=== PATIENT | female | born 1965 | race Caucasian/White ===

== ENCOUNTER 2016-10-12 09:57 | Inpatient (IN) | payer BC ==
[~2016-10-12] VITALS: Ht 162.6 cm; Wt 78.9 kg
[~2016-10-12 09:57] MED LIST: ACET500T76 PO; ACYC-114 PO; ASPI-496 PO; BACITRACIN 50,000 UNIT ONE; BACITRACIN OINT 500U/GM, 15 GM ONE; BIOT5TAB PO; BUPIVACAINE/PF-EPI 0.5% 1:200K ONE; CHOL500015 PO; DIPH25TA55 PO; GABA300C10 PO; GUAI1TAB PO; IBUP800T PO; INSU100C5 SQ-INSULIN; INSU100V8 SQ; LISI5TAB7 PO; METHOCARBAMOL 750 MG in DEXTROSE 5% 100 ML IV SCH; NAPR220C2 PO; ORLI60CA2 PO; POTA99TA3 PO; RANI300C PO; SIMV40TA3 PO; THROMBIN 20,000 UNIT VIAL TP ONE
[2016-10-12 10:26] VITALS: BP 122/78
[2016-10-12] MEDS ORDERED: INSU100I34 SQ (10:33)
[2016-10-12] MEDS ORDERED: INSU100C SQ-INSULIN (10:33)
[2016-10-12] MEDS ORDERED: LACTATED RINGERS 1,000 ML IV SCH (10:58)
[2016-10-12] MEDS ORDERED: BUPIVACAINE/PF-EPI 0.5% 1:200K ONE (13:18)
[2016-10-12] MEDS ORDERED: FENTANYL PF 250 MCG/5ML ONE (14:37)
[2016-10-12] MEDS ORDERED: KETAMINE 10 MG/ML, 20ML ONE (14:37)
[2016-10-12] MEDS ORDERED: SUCCINYLCHOLINE 20 MG/ML, 10ML ONE (14:43)
[2016-10-12] MEDS ORDERED: CEFAZOLIN 1,000 MG ONE (14:43)
[2016-10-12] MEDS ORDERED: METOCLOPRAMIDE 5 MG/ML, 2ML ONE (14:43)
[2016-10-12] MEDS ORDERED: PROPOFOL 10 MG/ML, 50ML ONE (14:43)
[2016-10-12] MEDS ORDERED: ONDANSETRON 2MG/ML, 2ML ONE (14:43)
[2016-10-12] MEDS ORDERED: PROPOFOL 10 MG/ML, 20ML ONE (14:43)
[2016-10-12] MEDS ORDERED: DEXTROSE 50%, 50ML SYRINGE ONE (15:40)
[2016-10-12] MEDS: INSULIN REGULAR 100 UNITS/ML, 3ML VIAL SQ-INSULIN SCH ×2 (16:00→21:54)
[2016-10-12] MEDS ORDERED: OXYcodone 5 MG/5 ML ORAL.SOL UDC ONE (17:15)
[2016-10-12] MEDS ORDERED: ACETAMINOPHEN 325 MG TABLET ONE (17:15)
[2016-10-12] MEDS ORDERED: ACETAMINOPHEN 650 MG/20.3 ML UDC ONE (17:15)
[2016-10-12] MEDS ORDERED: INSULIN SINGLE DOSE, ER SQ-INSULIN ONE ×2 (17:15→17:17)
[2016-10-12] MEDS ORDERED: FENTANYL PF 100 MCG/2ML ONE (17:15)
[2016-10-12] MEDS ORDERED: MIDAZOLAM 1 MG/ML, 2ML IV PRN (17:30)
[2016-10-12] MEDS ORDERED: hydrALAzine 20 MG/ML, 1ML IV PRN (17:30)
[2016-10-12] MEDS ORDERED: MEPERIDINE/PF 25MG/0.5ML IVPush PRN (17:30)
[2016-10-12] MEDS ORDERED: ONDANSETRON 2MG/ML, 2ML IVPush PRN (17:30)
[2016-10-12] MEDS ORDERED: PROMETHAZINE 25 MG/ML, 1ML IV PRN (17:30)
[2016-10-12] MEDS ORDERED: LABETALOL 5MG/ML, 20ML IV PRN (17:30)
[2016-10-12] MEDS ORDERED: OXYcodone 5 MG/5 ML ORAL.SOL UDC PO PRN (17:30)
[2016-10-12] MEDS ORDERED: MIDAZOLAM 1 MG/ML, 2ML ONE (17:34)
[2016-10-12] MEDS: FENTANYL PF 100 MCG/2ML IV PRN ×2 (17:35→17:50)
[2016-10-12] MEDS ORDERED: HYDROmorphone 2 MG/ML, 1ML ONE (17:58)
[2016-10-12] MEDS: HYDROmorphone 1 MG/ML, 1ML IV PRN ×2 (18:01→18:13)
[2016-10-12] MEDS ORDERED: METHOCARBAMOL 1,000 MG in DEXTROSE 5% 100 ML IV ONE (19:30)
[2016-10-12] MEDS ORDERED: MAGNESIUM HYDROXIDE 8%, 30ML UDC PO PRN (19:30)
[2016-10-12] MEDS ORDERED: DIPHENHYDRAMINE 25 MG CAPSULE PO PRN (19:30)
[2016-10-12] MEDS ORDERED: HYDROcodone/APAP 5/325 TABLET PO PRN (19:30)
[2016-10-12] MEDS ORDERED: BISACODYL 10 MG SUPP PR PRN (19:30)
[2016-10-12] MEDS: NS + 20MEQ KCL 1,000 ML IV SCH (19:30)
[2016-10-12] MEDS ORDERED: FAMOTIDINE 40 MG TABLET PO PRN (20:30)
[2016-10-12] MEDS ORDERED: GABAPENTIN MC SCH (20:30)
[2016-10-12] MEDS: morphine SULFATE 10 MG/ML, 1ML IV PRN (20:54)
[2016-10-12] MEDS ORDERED: ZOLPIDEM 5MG TABLET PO PRN (21:00)
[2016-10-12] MEDS ORDERED: INSULIN DETEMIR 100 UNITS/ML, PEN SQ-INSULIN SCH (21:00)
[2016-10-12] MEDS: SIMVASTATIN 20 MG TABLET PO SCH (21:09)
[2016-10-12] MEDS: ONDANSETRON 2MG/ML, 2ML IV PRN (22:12)
[2016-10-12] MEDS: OXYcodone/APAP 5/325MG TABLET PO PRN (22:46)
[2016-10-12] MEDS: CEFAZOLIN PMX 1GM/50ML 50 ML IVPB SCH (22:46)
[2016-10-13 00:29] VITALS: BP 133/64
[2016-10-13] MEDS: morphine SULFATE 10 MG/ML, 1ML IV PRN ×3 (02:26→16:35)
[2016-10-13 03:41] VITALS: BP 132/62
[2016-10-13] MEDS: METHOCARBAMOL 750 MG in DEXTROSE 5% 100 ML IV SCH ×3 (04:39→20:20)
[2016-10-13] MEDS: OXYcodone/APAP 5/325MG TABLET PO PRN ×5 (04:45→22:52)
[2016-10-13] MEDS: ONDANSETRON 2MG/ML, 2ML IV PRN ×2 (04:45→13:19)
[2016-10-13] MEDS: NS + 20MEQ KCL 1,000 ML IV SCH ×2 (05:46→20:21)
[2016-10-13] MEDS: CEFAZOLIN PMX 1GM/50ML 50 ML IVPB SCH (06:40)
[2016-10-13 07:40] VITALS: BP 132/62
[2016-10-13] MEDS ORDERED: DEXAMETHASONE 4 MG/ML, 1ML IV ONE (08:00)
[2016-10-13] MEDS: INSULIN REGULAR 100 UNITS/ML, 3ML VIAL SQ-INSULIN SCH ×4 (08:15→21:27)
[2016-10-13] MEDS: GABAPENTIN 300 MG CAPSULE PO SCH (08:16)
[2016-10-13] MEDS: OxyconTIN ER 10 MG TAB.ER PO SCH ×2 (08:16→21:22)
[2016-10-13] MEDS: CHOLECALCIFEROL 1,000 UNIT TABLET PO SCH (08:17)
[2016-10-13] MEDS: SENNA/DOCUSATE TABLET PO SCH (08:17)
[2016-10-13] MEDS: LISINOPRIL 5 MG TABLET PO SCH (08:17)
[2016-10-13] MEDS ORDERED: INSULIN GLARGINE 36 UNIT SQ SCH (11:30)
[2016-10-13] MEDS: INSULIN DETEMIR 100 UNITS/ML, PEN SQ-INSULIN SCH (12:10)
[2016-10-13 15:22] VITALS: BP 134/54
[2016-10-13 19:10] VITALS: BP 143/66
[2016-10-13] MEDS: SIMVASTATIN 20 MG TABLET PO SCH (21:22)
[2016-10-14 01:40] VITALS: BP 138/65
[2016-10-14] MEDS: METHOCARBAMOL 750 MG in DEXTROSE 5% 100 ML IV SCH ×3 (03:20→20:00)
[2016-10-14] MEDS: OXYcodone/APAP 5/325MG TABLET PO PRN ×4 (03:20→21:33)
[2016-10-14] MEDS: morphine SULFATE 10 MG/ML, 1ML IV PRN (04:41)
[2016-10-14] MEDS: INSULIN REGULAR 100 UNITS/ML, 3ML VIAL SQ-INSULIN SCH ×4 (07:00→20:13)
[2016-10-14 07:40] VITALS: BP 145/77
[2016-10-14] MEDS: SENNA/DOCUSATE TABLET PO SCH (09:26)
[2016-10-14] MEDS: CHOLECALCIFEROL 1,000 UNIT TABLET PO SCH (09:26)
[2016-10-14] MEDS: OxyconTIN ER 10 MG TAB.ER PO SCH ×2 (09:26→20:00)
[2016-10-14] MEDS: GABAPENTIN 300 MG CAPSULE PO SCH (09:26)
[2016-10-14] MEDS: INSULIN DETEMIR 100 UNITS/ML, PEN SQ-INSULIN SCH (09:26)
[2016-10-14] MEDS: LISINOPRIL 5 MG TABLET PO SCH (09:27)
[2016-10-14 15:11] VITALS: BP 122/63
[2016-10-14 19:40] VITALS: BP 129/72
[2016-10-14] MEDS: SIMVASTATIN 20 MG TABLET PO SCH (20:01)
[2016-10-15] MEDS: OXYcodone/APAP 5/325MG TABLET PO PRN ×3 (01:42→11:31)
[2016-10-15 03:00] VITALS: BP 135/76
[2016-10-15] MEDS ORDERED: OXYC10TA32 PO (03:10)
[2016-10-15] MEDS ORDERED: HYDR-3144 PO (03:21)
[2016-10-15] MEDS ORDERED: SENN1TAB7 PO (03:39)
[2016-10-15] MEDS ORDERED: CALC300T5 PO (03:40)
[2016-10-15] MEDS ORDERED: CHOL-29 PO (03:43)
[2016-10-15] MEDS ORDERED: METH750T87 PO (03:44)
[2016-10-15] MEDS ORDERED: METHOCARBAMOL 750 MG TABLET PO SCH (06:00)
[2016-10-15] MEDS: INSULIN REGULAR 100 UNITS/ML, 3ML VIAL SQ-INSULIN SCH ×2 (07:34→11:00)
[2016-10-15 08:20] VITALS: BP 130/76
[2016-10-15] MEDS: SENNA/DOCUSATE TABLET PO SCH (09:12)
[2016-10-15] MEDS: OxyconTIN ER 10 MG TAB.ER PO SCH (09:12)
[2016-10-15] MEDS: GABAPENTIN 300 MG CAPSULE PO SCH (09:12)
[2016-10-15] MEDS: CHOLECALCIFEROL 1,000 UNIT TABLET PO SCH (09:13)
[2016-10-15] MEDS: LISINOPRIL 5 MG TABLET PO SCH (09:13)
[2016-10-15] MEDS: INSULIN DETEMIR 100 UNITS/ML, PEN SQ-INSULIN SCH (09:16)
[2016-10-15] MEDS ORDERED: OXYC1TAB9 PO (11:17)
[2016-10-15 12:15] VITALS: BP 130/77
== END 2016-10-15 12:21 | disposition home or self-care (01) | DRG 473 ==
LOC: ORIP 09:57 → 4NOR 18:56
PROVIDERS: ADMIT Neurological Surgery; ATTEND Neurological Surgery
PROC: 0RG2071 Fusion of 2 or more Cervical Vertebral Joints with Autologous Tissue Substitute, Posterior Approach, Posterior Column, Open Approach (ICD-10-PCS; 2016-10-12)
PROC: 0RB50ZZ Excision of Cervicothoracic Vertebral Disc, Open Approach (ICD-10-PCS; 2016-10-12)
PROC: 0RB30ZZ Excision of Cervical Vertebral Disc, Open Approach (ICD-10-PCS; 2016-10-12)
PROC: 01N10ZZ Release Cervical Nerve, Open Approach (ICD-10-PCS; 2016-10-12)
PROC: 4A11X4G Monitoring of Peripheral Nervous Electrical Activity, Intraoperative, External Approach (ICD-10-PCS; 2016-10-12)
PROC: 0RG4071 Fusion of Cervicothoracic Vertebral Joint with Autologous Tissue Substitute, Posterior Approach, Posterior Column, Open Approach (ICD-10-PCS; principal; 2016-10-12 14:30)
DX: M50.03 Cervical disc disorder with myelopathy, cervicothoracic region (principal); M50.023 Cervical disc disorder at C6-C7 level with myelopathy; M50.223 Other cervical disc displacement at C6-C7 level; E11.9 Type 2 diabetes mellitus without complications; R13.10 Dysphagia, unspecified; Z90.49 Acquired absence of other specified parts of digestive tract
CPT/HCPCS: 36415; 72040; 82962; 86850; 86900; C1713; J0690; J1100; J1170; J1815; J2250; J2405; J2704; J3010; J3480; C1762; J0330; J2270; J2765; J2800; J7120

== ENCOUNTER 2016-10-20 15:48 | Emergency (ER) | payer BC ==
[~2016-10-20] VITALS: Ht 162.6 cm; Wt 77.6 kg
[~2016-10-20 15:48] MED LIST changes: -BACITRACIN 50,000 UNIT ONE; -BACITRACIN OINT 500U/GM, 15 GM ONE; -BUPIVACAINE/PF-EPI 0.5% 1:200K ONE; +CALC300T5 PO; +CHOL-29 PO; +HYDR-3144 PO; +INSU100C SQ-INSULIN; +INSU100I34 SQ; +METH750T87 PO; -METHOCARBAMOL 750 MG in DEXTROSE 5% 100 ML IV SCH; +OXYC10TA32 PO; +OXYC1TAB9 PO; +SENN1TAB7 PO; -THROMBIN 20,000 UNIT VIAL TP ONE
[2016-10-20 16:03] VITALS: BP 145/71
[2016-10-20] MEDS ORDERED: SODIUM CHLORIDE FLUSH 10ML SYR IVF ONE (16:30)
[2016-10-20] MEDS ORDERED: SODIUM CHLORIDE 0.9% 1,000ML IVBOLUS ONE (16:30)
[2016-10-20 17:22] LABS: ASPARTATE AMINO TRANSFERASE 10 U/L (15-37); BLOOD UREA NITROGEN 13 mg/dL (7-18)
[2016-10-20] MEDS ORDERED: PROMETHAZINE 25 MG/ML, 1ML ONE (18:19)
[2016-10-20] MEDS ORDERED: PROMETHAZINE 25 MG/ML, 1ML IM ONE (18:30)
[2016-10-20] MEDS ORDERED: METHYLNALTREXONE 12 MG/0.6 ML SQ ONE (18:30)
[2016-10-20 19:34] LABS: PATH.CAST-FLAG NOT PRESENT; SPERM-FLAG NOT PRESENT; SRC-FLAG NOT PRESENT; XTAL-FLAG NOT PRESENT; YLC-FLAG NOT PRESENT
== END 2016-10-20 20:11 | disposition home or self-care (01) ==
LOC: ED 20:00
DX: K59.00 Constipation, unspecified (principal)
CPT/HCPCS: 36415; 74020; 80053; 81001; 85025; 87086; 96372; 99285; J2550

== ENCOUNTER → 2016-11-17 | Outpatient (CLI) | payer BC | END | disposition home or self-care (01) | LOC: RAD 11:17 | PROVIDERS: ATTEND Neurological Surgery | DX: M50.022 Cervical disc disorder at C5-C6 level with myelopathy (principal); Z98.1 Arthrodesis status | CPT/HCPCS: 72050 ==

== ENCOUNTER → 2016-12-27 | Outpatient (CLI) | payer BC | END | disposition home or self-care (01) | LOC: RAD 09:34 | PROVIDERS: ATTEND Neurological Surgery | DX: M48.02 Spinal stenosis, cervical region (principal); M50.00 Cervical disc disorder with myelopathy, unspecified cervical region; G89.29 Other chronic pain | CPT/HCPCS: 72050 ==

== ENCOUNTER → 2017-03-20 | Outpatient (CLI) | payer BC ==
[~2017-03-20] MED LIST changes: +ACET500T71 PO; -ACET500T76 PO; +DIPH-540 PO; -DIPH25TA55 PO
== END | disposition home or self-care (01) ==
LOC: RAD 08:36
PROVIDERS: ATTEND Neurological Surgery
DX: M50.00 Cervical disc disorder with myelopathy, unspecified cervical region (principal); M47.892 Other spondylosis, cervical region; Z98.1 Arthrodesis status
CPT/HCPCS: 72050

== ENCOUNTER → 2017-04-21 | Outpatient (CLI) | payer BC ==
[~2017-04-21] MED LIST changes: -HYDR-3144 PO; +HYDR-3245 PO; +IBUP-1223 PO; -IBUP800T PO; -OXYC10TA32 PO; +OXYC10TA47 PO
== END | disposition home or self-care (01) ==
LOC: CFH 08:31
PROVIDERS: ATTEND Neurological Surgery
DX: M50.00 Cervical disc disorder with myelopathy, unspecified cervical region (principal)
CPT/HCPCS: 72125

== ENCOUNTER → 2017-06-08 | Outpatient (CLI) | payer BC ==
[~2017-06-08] MED LIST changes: +ACET-1600 PO; +ASPI-621 PO; +BIOT25005 PO; +DIPH25TA2 PO; +POTASSIUM GLU PO; +TIZA4TAB PO; +[UNRECOGNIZED DRUG - CODE] TP
[2017-06-08 13:26] LABS: ASPARTATE AMINO TRANSFERASE 17 U/L (15-37); BLOOD UREA NITROGEN 17 mg/dL (7-18)
== END | disposition home or self-care (01) ==
LOC: STAR 11:00
PROVIDERS: ATTEND Orthopaedic Surgery
DX: Z01.818 Encounter for other preprocedural examination (principal); R94.31 Abnormal electrocardiogram [ECG] [EKG]; M75.121 Complete rotator cuff tear or rupture of right shoulder, not specified as traumatic; M75.41 Impingement syndrome of right shoulder; M75.21 Bicipital tendinitis, right shoulder; E11.9 Type 2 diabetes mellitus without complications
CPT/HCPCS: 36415; 80053; 93005

== ENCOUNTER 2017-06-13 10:39 | Day surgery (SDC) | payer BC ==
[~2017-06-13] VITALS: Ht 162.6 cm; Wt 82.0 kg
[~2017-06-13 10:39] MED LIST changes: +EPINEPHRINE 1 MG/ML, 1ML ONE; +LIDOCAINE/PF 1%, 30ML ONE
[2017-06-13] MEDS ORDERED: LACTATED RINGERS 1,000 ML IV SCH (10:50)
[2017-06-13 11:08] VITALS: BP 153/81
[2017-06-13] MEDS ORDERED: MIDAZOLAM 1 MG/ML, 2ML ONE (11:49)
[2017-06-13] MEDS ORDERED: FENTANYL PF 100 MCG/2ML ONE (11:49)
[2017-06-13] MEDS ORDERED: BUPIVACAINE/PF 0.5% ONE ×2 (11:50→13:03)
[2017-06-13] MEDS ORDERED: TEMPLATE NON-FORMULARY MED. (Insulin Aspart** (Novolog**) 0 UNITS) SQ-INSULIN SCH (13:00)
[2017-06-13] MEDS ORDERED: IBUPROFEN 800 MG TABLET PO SCH (13:00)
[2017-06-13] MEDS ORDERED: [UNRECOGNIZED DRUG - REMARK] PO SCH (13:00)
[2017-06-13] MEDS ORDERED: MENTHOL TP SCH (13:00)
[2017-06-13] MEDS ORDERED: TEMPLATE NON-FORMULARY MED. (Ranitidine Hcl** 150 MG) PO PRN (13:00)
[2017-06-13] MEDS ORDERED: TIZANIDINE 4MG TABLET PO SCH (13:00)
[2017-06-13] MEDS ORDERED: METHYL SALICYLATE TP SCH (13:00)
[2017-06-13] MEDS ORDERED: INSULIN GLARGINE HUM REC ANLOG 36 UNIT SQ SCH (13:00)
[2017-06-13] MEDS ORDERED: SUCCINYLCHOLINE 20 MG/ML, 10ML ONE (13:02)
[2017-06-13] MEDS ORDERED: KETOROLAC 30 MG/1 ML ONE (13:02)
[2017-06-13] MEDS ORDERED: DEXAMETHASONE 4 MG/ML, 1ML ONE (14:15)
[2017-06-13] MEDS ORDERED: PROPOFOL 10 MG/ML, 20ML ONE (14:15)
[2017-06-13] MEDS ORDERED: CEFAZOLIN 1,000 MG ONE (14:15)
[2017-06-13] MEDS ORDERED: ONDANSETRON 2MG/ML, 2ML ONE (14:15)
[2017-06-13] MEDS ORDERED: MIDAZOLAM 1 MG/ML, 2ML IV PRN (14:30)
[2017-06-13] MEDS ORDERED: LORazepam 2 MG/ML, 1ML IVPush PRN (14:30)
[2017-06-13] MEDS ORDERED: LABETALOL 5MG/ML, 20ML IV PRN (14:30)
[2017-06-13] MEDS ORDERED: HYDROmorphone 1 MG/ML, 1ML IV PRN (14:30)
[2017-06-13] MEDS ORDERED: DIAZEPAM 5 MG/ML, 2ML IVPush PRN (14:30)
[2017-06-13] MEDS ORDERED: PROMETHAZINE 25 MG/ML, 1ML IV PRN (14:30)
[2017-06-13] MEDS ORDERED: ONDANSETRON 2MG/ML, 2ML IVPush PRN (14:30)
[2017-06-13] MEDS ORDERED: hydrALAzine 20 MG/ML, 1ML IV PRN (14:30)
[2017-06-13] MEDS ORDERED: ACETAMINOPHEN 325 MG TABLET PO PRN (14:30)
[2017-06-13] MEDS ORDERED: OXYcodone 5 MG/5 ML ORAL.SOL UDC PO PRN (14:30)
[2017-06-13] MEDS ORDERED: ALBUTEROL/IPRATROPIUM 2.5MG/0.5MG, 3 ML NPPB PRN (14:30)
[2017-06-13] MEDS ORDERED: FENTANYL PF 100 MCG/2ML IV PRN (14:30)
[2017-06-13] MEDS ORDERED: MEPERIDINE/PF 25MG/0.5ML IVPush PRN (14:30)
[2017-06-13] MEDS ORDERED: LORazepam 2 MG/ML, 1ML ONE (14:55)
[2017-06-13] MEDS ORDERED: ORLISTAT PO SCH (16:00)
[2017-06-13] MEDS ORDERED: HYDROcodone/APAP 10/325 MG TABLET ONE (16:33)
[2017-06-13] MEDS ORDERED: LISINOPRIL 5 MG TABLET PO SCH (21:00)
[2017-06-13] MEDS ORDERED: SIMVASTATIN 40 MG TABLET PO SCH (21:00)
[2017-06-14] MEDS ORDERED: TEMPLATE NON-FORMULARY MED. (Cholecalciferol (Vitamin D3)** (Vitamin D3**) 5,000 UNIT) PO SCH (09:00)
[2017-06-14] MEDS ORDERED: POTASSIUM GLU PO SCH (09:00)
[2017-06-14] MEDS ORDERED: TEMPLATE NON-FORMULARY MED. (Biotin** 5,000 MG) PO SCH (09:00)
[2017-06-14] MEDS ORDERED: ASPIRIN 81 MG TABLET EC PO SCH (09:00)
== END 2017-06-13 16:58 ==
LOC: OUT 10:39
PROVIDERS: ATTEND Orthopaedic Surgery
DX: M75.111 Incomplete rotator cuff tear or rupture of right shoulder, not specified as traumatic (principal); S43.431A Superior glenoid labrum lesion of right shoulder, initial encounter; M19.011 Primary osteoarthritis, right shoulder; M75.41 Impingement syndrome of right shoulder; M65.811 Other synovitis and tenosynovitis, right shoulder; M75.01 Adhesive capsulitis of right shoulder; X58.XXXA Exposure to other specified factors, initial encounter; Y93.89 Activity, other specified; Y92.89 Other specified places as the place of occurrence of the external cause; Y99.8 Other external cause status; E11.9 Type 2 diabetes mellitus without complications; I10 Essential (primary) hypertension; E78.5 Hyperlipidemia, unspecified; K21.9 Gastro-esophageal reflux disease without esophagitis
CPT/HCPCS: 29822; 29824; 29825; 29826; 29827; 82962; J0171; J0330; J0690; J1100; J1885; J2060; J2250; J2405; J2704; J3010; J3490; J7120

== ENCOUNTER → 2017-10-17 | Outpatient (CLI) | payer BC ==
[~2017-10-17] MED LIST changes: -EPINEPHRINE 1 MG/ML, 1ML ONE; -LIDOCAINE/PF 1%, 30ML ONE
== END | disposition home or self-care (01) ==
LOC: RAD 12:06
PROVIDERS: ATTEND Neurological Surgery
DX: S13.130A Subluxation of C2/C3 cervical vertebrae, initial encounter (principal); M50.00 Cervical disc disorder with myelopathy, unspecified cervical region; X58.XXXA Exposure to other specified factors, initial encounter; Y93.89 Activity, other specified; Y92.89 Other specified places as the place of occurrence of the external cause; Y99.8 Other external cause status
CPT/HCPCS: 72050